=== PATIENT | female | born 2000 | race African-American/Black ===

== ENCOUNTER 2023-03-29 06:33 | Day surgery (SDC) | payer OTHER, MEDICAID, SELFPAY ==
[2023-03-26 07:44] VITALS: BMI 46.9
--- NOTE | 2023-03-29 | PATH_ITS ---
[facility] Accession Number: [id number] No. of containers..01 Tissue . 01 Material submitted: . tonsil - BILATERAL TONSILS . 01 Diagnosis: Bilateral Tonsils, Tonsillectomy: Mild, chronic-active tonsillitis and associated reactive lymphoid hyperplasia. Negative for malignancy. V 04/04/20231622 Local . 01 Electronically signed: . Nydia Cartwright MD, Pathologist NPI- [id number] . 01 Gross description: . The specimen is received in formalin labeled with the patient's name, , and bilateral tonsils, consists of two cerebriform tonsils. The first measures 5.3 x 2.7 x 1.2 cm and is inked blue, while the second measures 4.5 x 2.5 x 1.8 cm and is inked green. Sectioning reveals unremarkable architecture with yellow friable material found at the base of the crypts. A utility sales representative section of each tonsil is submitted in cassette A1. ([id number]) /V 04/04/20231622 Local . 01 Pathologist provided ICD-10: H65.93, G47.30 . 01 CPT . 508958 Specimen Comment: A courtesy copy of this report has been sent to [phone] Performed at: 01 [facility] [address] [place] [address], [place], [place] [id number] MD Kenji Negrete MD Phone: [phone]
[2023-03-29 07:12] VITALS: BP 109/67; PULSE 80; RESP 18; TEMP 36.3; O2SAT 98; BMI 48.2
--- NOTE | 2023-03-29 07:22 | PM.PREOP ---
Pre-operative Note Interval Note History & Physical reviewed/Exam performed by Physician: Yes Changes to H&P: No
--- NOTE | 2023-03-29 07:22 | PM.OP.1 ---
Operative Date/Time/Diagnoses Date of procedure: 03/29/23 Time of procedure: 08:44 Pre-op diagnosis: Severe IMTIAZ, adenotonsillar hypertrophy, Eustachian tube dysfunction, cervical lymphadenopathy Post-op diagnosis: same Procedure & Clinicians Procedure: 1. Adenotonsillectomy 2. Bilateral myringotomy with tube placement Same procedure as scheduled: Yes Indications: 22 Year old with the above diagnoses incompletely managed with medical therapy presents for the above procedure. Following discussion of the material risks benefits complications and alternatives, the patient elected to proceed. Surgeon: Lauro Begum Click Yes if Unassisted: Yes Anesthesia Type: General and Local Operative Notes Findings: Intact palate, single uvula, 4+ tonsils slightly friable, 3 to 4+ adenoids, retracted TMs AU, LEFT > RIGHT, no effusions. Shallow LEFT middle ear, tube resting on promontory. Estimated Blood Loss (mL): 5 Procedure in detail: Following identification and confirmation of consent, the patient was brought to the operating suite and placed in the supine position. General endotracheal anesthesia was administered. Under the operating microscope, beginning on the left side, I performed an anterior-inferior myringotomy followed by suctioning of any fluid present. A De Los Santos tube was placed followed by Ciprodex drops pumped into the middle ear. This process was repeated on the right side with identical findings. The table was turned right side out and A head wrap, shoulder roll, and mouth gag were placed and a red rubber catheter was inserted through the nostril and out the mouth to retract the soft palate. Suction electrocautery on a setting of 40 was used to ablate the adenoids, without injury to the eustachian tube orifices or choanae. The left tonsil was retracted medially and suction electrocautery on a setting of 30 was used to dissect the tonsil in a subcapsular plane, followed by hemostasis with same. This process was repeated on the right side with identical findings. The tonsillar fossa were superficially infiltrated bilaterally with a 1% lidocaine 1 100,000 epinephrine. Mouth gag and rubber catheter were removed and the patient was extubated in the operating room and taken to the recovery room in stable condition without known complication. Complications: none Post-operative Condition: stable Disposition: same day surgery Plan for aftercare: Push fluids 4 L daily, alternate Tylenol and Advil every 3 hours for baseline pain control, oxycodone for breakthrough pain. Soft diet 2 full weeks, no heavy lifting or straining 2 weeks. CPAP at all times during sleep, even naps. Ciprodex 4 gtts pumped into middle ear BID for 2 days, next dose tonight.
--- NOTE | 2023-03-29 07:33 | PM.HP.1 ---
History of Present Illness History of Present Illness Date Patient Seen: 03/29/23 Chief complaint: SDC Narrative: 22-year-old female presents for adenotonsillectomy, possible tube placement, last seen via telemedicine visit 02/21/2023, previously 12/18/2022 and person. Most importantly, she was diagnosed with severe IMTIAZ by sleep study 02/05, AHI 93, desaturation 66%. She is becoming accustomed to her nasal pillow CPAP, typically tolerating 5 hours nightly and has noticed some improvement in her daytime somnolence. No recent cough cold or fever. Ear still feel plugged at least intermittently, interested in possible tube placement under the same anesthetic. Patient brought CPAP with her, anesthesia review was completed 12/21, PCP clearance 12/19 reviewed. The hope is she will be able to be discharged home today otherwise overnight observation. Her mother is with her and will be caring for her postoperatively. [facility] Medical History ETD (eustachian tube dysfunction) Daytime somnolence Anxiety Cervical adenopathy Tonsillar hypertrophy IMTIAZ on CPAP Surgical History No history of previous surgery Social History household members: family Smoking Status: Never smoker alcohol intake: never Meds Home Medications and Allergies Home Medications Medication Instructions Recorded Confirmed Type escitalopram oxalate 10 mg tablet 10 mg PO DAILY 03/26/23 03/29/23 History (Lexapro) Allergies Allergy/AdvReac Type Severity Reaction Status Date / Time No Known Drug Allergies Allergy Verified 03/29/23 07:10 Review of Systems Review of Systems Narrative: Negative except as listed in the HPI Exam Vital Signs (past 8 hours): - 03/29/23 07:12 Temperature 97.4 F L Pulse Rate 80 Respiratory Rate 18 Blood Pressure 109/67 Pulse Oximetry 98 Oxygen Delivery Method Room Air Oxygen Delivery Method Room Air Narrative Exam Narrative: Well-developed well-nourished, heart regular rate and rhythm without murmur, lungs clear to auscultation bilaterally Assessment & Plan Assessment & Plan narrative: Assessment: Severe IMTIAZ, adenotonsillar hypertrophy, Eustachian tube dysfunction, possible otitis media with effusion, possible cervical lymphadenopathy Plan: Following discussion of the material risks benefits complications and alternatives, the patient elected to proceed.
--- NOTE | 2023-03-29 08:08 | SUR.OPER ---
Supine on padded OR bed, head on padded gel donut, head elevated using triangle and folded towels, arms secured on padded arm boards at <90 degrees abduction, legs uncrossed, safety belt at thigh, tape over blanket over lower legs.
[2023-03-29] MEDS: CIPROFLOXACIN/DEXAMETH OTIC SUSP 4 DROPS EAR-BOTH (08:13)
[2023-03-29] MEDS: LIDOCAINE 1% W/EPI 20 ML INJ (08:18)
[2023-03-29] MEDS: ACETAMINOPHEN IV 1,000 MG/100 ML VIAL 400 MG IV (08:38)
[2023-03-29 08:53] VITALS: BP 149/93; PULSE 95; RESP 18; TEMP 36.7; O2SAT 96
[2023-03-29 09:02] VITALS: BP 139/85; PULSE 69; RESP 20; O2SAT 100
[2023-03-29] MEDS: OXYCODONE IR 5 MG TABLET PO (09:02)
[2023-03-29 09:08] VITALS: BP 149/93; PULSE 72; RESP 15; O2SAT 100
[2023-03-29 09:13] VITALS: BP 135/86; PULSE 68; RESP 17; TEMP 36.7; O2SAT 100
== END 2023-03-29 09:39 | disposition home or self-care (01) ==
PROVIDERS: PCP Physician Assistant; Referring Provider Otolaryngology; Visit Provider Otolaryngology
PROC: (CPT 42821; principal; 2023-03-29 07:45)
PROC: (CPT 42821; 2023-03-29 07:45)
DX: H65.93 Unspecified nonsuppurative otitis media, bilateral (principal); H69.83 Other specified disorders of Eustachian tube, bilateral; R40.0 Somnolence; J35.3 Hypertrophy of tonsils with hypertrophy of adenoids; G47.30 Sleep apnea, unspecified; R59.0 Localized enlarged lymph nodes
CPT/HCPCS: 42821; 69436; J0131; J0330; J1100; J2405; J2704; J3010

== ENCOUNTER 2024-11-28 05:56 | Emergency (ER) | payer OTHER, SELFPAY ==
[2024-11-28 06:11] VITALS: BP 108/69; PULSE 88; RESP 18; O2SAT 99; BMI 51.2
[2024-11-28 06:32] LABS: Bilirubin Urine UA NEGATIVE (NEGATIVE); Color Urine UA YELLOW; Glucose Urine UA NEGATIVE (Negative); Ketones Urine UA NEGATIVE (NEGATIVE); Leukocyte Esterase Urine UA NEGATIVE (NEGATIVE); Nitrite Urine UA NEGATIVE (Negative); Occult Blood Urine UA 3+ (Negative); Protein Urine UA TRACE (Negative); Specific Gravity Urine UA 1.025 (1.000-1.035)
[2024-11-28 06:33] LABS: Pregnancy Test Urine Negative (Negative)
[2024-11-28 06:34] LABS: Appearance Urine UA CLOUDY
[2024-11-28 06:41] LABS: Add Manual Diff / Slide Review NO; Basophils Absolute Auto 100 /uL (0-100); Basophils Percent Auto 0.5 % (0-2); Eosinophils Absolute Auto 200 /uL (0-450); Eosinophils Percent Auto 2.1 % (2-4); Hematocrit 36.7 % (36-46); Hemoglobin 12.1 g/dL (12.0-16.0); Lymphocytes Absolute Auto 2000 /uL (1100-4500); Lymphocytes Percent Auto 19.1 % (25-40); Mean Corpuscular Volume 81.6 fL (80-100); Monocytes Absolute Auto 700 /uL (0-900); Monocytes Percent Auto 6.7 % (3-14); Neutrophils Absolute Auto 7400 /uL (1500-7000); Neutrophils Percent Auto 71.6 % (50-75); Platelet Count 385 X10^3/uL (150-400); Red Blood Cell Count 4.49 X10^6/uL (4.0-5.2); Red Cell Distribution Width 14.3 % (11.6-14.8); White Blood Cell Count 10.4 X10^3/uL (4.5-11.0)
[2024-11-28 06:50] LABS: Urine Volume Low Vol <10mL (spun)
[2024-11-28 06:51] LABS: Bacteria Urine None Seen; Culture Indicated Urine Cult Not Indicated; RBC Urine 30-100/HPF (0-5/HPF); Squamous Epithelial Cell Urine None Seen (0-5/HPF); WBC Urine None Seen (0-5/HPF)
[2024-11-28 06:56] LABS: Alanine Aminotransferase 23 IU/L (<35); Albumin 4.2 g/dL (3.5-5.0); Albumin Globulin Ratio 1.2 (1.0-2.8); Alkaline Phosphatase 97 U/L (38-126); Aspartate Aminotransferase 31 IU/L (14-36); BUN Creatinine Ratio 25.6 (6-22); Bilirubin Total 0.4 mg/dL (0.2-1.3); Blood Urea Nitrogen 20 mg/dL (7-17); Calcium 9.1 mg/dL (8.4-10.2); Carbon Dioxide 25 mmol/L (22-32); Chloride 106 mmol/L (98-107); Estimated Glomerular Filt Rate > 60 mL/min (>60); Globulin 3.6 g/dL (1.7-4.1); Glucose 100 mg/dL (70-99); HEMOLYSIS < 15 (0-50); Sodium 139 mmol/L (137-145); Total Protein 7.8 g/dL (6.3-8.2)
--- NOTE | 2024-11-28 06:57 | ED.GENADULT ---
HPI - General Adult General Chief complaint: Abdominal Pain Stated complaint: pelvic pain, poss. , blood clots in urine Time Seen by Provider: 11/28/24 06:06 Source: patient Mode of arrival: Ambulatory History of Present Illness HPI narrative: 24-year-old woman no significant medical history concerned with pelvic cramping severe for the last 7 hours and noticeable for at least 24 hours. She notes that she and her were trying to get , she had a positive test on November 20, a negative test on November 27 comes in today with severe cramping and heavy bleeding. She states she has been once before and had an uncomplicated spontaneous miscarriage 6-1/2 weeks. Currently no fevers or chills, ibuprofen has not been effective in controlling her current cramps. No dysuria no previous vaginal discharge, no fevers, chills, cough, chest pain, palpitation Related Data Home Medications ?Medication ?Instructions ?Recorded ?Confirmed escitalopram oxalate 10 mg tablet 10 mg PO DAILY 03/26/23 03/29/23 (Lexapro) Allergies Allergy/AdvReac Type Severity Reaction Status Date / Time No Known Drug Allergies Allergy Verified 03/29/23 07:10 Review of Systems Review of Systems Narrative: Pertinent positive and negative findings as per HPI Patient History Medical History ETD (eustachian tube dysfunction) Daytime somnolence Anxiety Cervical adenopathy Tonsillar hypertrophy IMTIAZ on CPAP Surgical History No history of previous surgery Social History household members: family alcohol intake: never Exam Initial Vital Signs Initial Vital Signs: Vital Signs Pulse Rate 88 11/28/24 06:11 Respiratory Rate 18 11/28/24 06:11 Blood Pressure 108/69 11/28/24 06:11 Pulse Oximetry 99 11/28/24 06:11 Oxygen Delivery Method Room Air 11/28/24 06:11 General: Alert appropriate in no acute distress Respiratory: Able to speak in full sentences, no obvious respiratory distress Abdomen: Obese, soft, no rebound or guarding, does not have significant pelvic tenderness externally Skin: No obvious rashes, warm and dry Neurologic: Grossly intact no obvious asymmetries or abnormalities Psych: appropriate insight and affect, cooperative Course Orders Ordered: ED Orders 11/28/24 06:06 Chlamydia Gonorrhea PCR -URINE Stat 11/28/24 06:10 Test Urine Stat Urinalysis and Microscopic Stat 11/28/24 06:32 CBC Auto Diff [Complete Blood Count AUTO DIFF] Stat CMP [Comprehensive Metabolic Panel] Stat HCG Quantitative /Beta subunit Stat Vital Signs Vital signs: Vital Signs - 8 hr 11/28/24 06:11 Pulse Rate 88 Respiratory Rate 18 Blood Pressure 108/69 Pulse Oximetry 99 Oxygen Delivery Method Room Air Medical Decision Making Lab Data 11/28/24 06:32 11/28/24 06:32 Labs: Lab Results 11/28/24 11/28/24 Range/Units 06:10 06:32 WBC 10.4 (4.5-11.0) X10^3/uL RBC 4.49 (4.0-5.2) X10^6/uL Hgb 12.1 (12.0-16.0) g/dL Hct 36.7 (36-46) % MCV 81.6 (80-100) fL MCH 27.0 (26-34) PG MCHC 33.0 (30-36) % RDW 14.3 (11.6-14.8) % Plt Count 385 (150-400) X10^3/uL Neut % (Auto) 71.6 (50-75) % Lymph % (Auto) 19.1 L (25-40) % [place] % (Auto) 6.7 (3-14) % Eos % (Auto) 2.1 (2-4) % Baso % (Auto) 0.5 (0-2) % Neut # (Auto) 7400 H (8943-1859) /uL Lymph # (Auto) 2000 (4638-2335) /uL [place] # (Auto) 700 (0-900) /uL Eos # (Auto) 200 (0-450) /uL Baso # (Auto) 100 (0-100) /uL Urine Color Yellow Urine Appearance Cloudy Urine pH 6.0 (4.5-8.0) Ur Specific [place] 1.025 (1.000-1.035) Urine Protein Trace H (Negative) Urine Glucose (UA) Negative (Negative) g/dL Urine Ketones Negative (NEGATIVE) Urine Occult Blood 3+ H (Negative) Urine Nitrate Negative (Negative) Urine Bilirubin Negative (NEGATIVE) Urine Urobilinogen 1.0 (0.2) E.U./dL Ur Leukocyte Esterase Negative (NEGATIVE) Urine RBC 30-100/hpf H (0-5/HPF) Urine WBC None seen (0-5/HPF) Ur Squamous Epith Cells None seen (0-5/HPF) Urine Bacteria None seen (None) Ur Culture Indicated? Cult not indicated Vol Urine Centrifuged Low vol <10ml (spun) A Urine Test Negative (Negative) MDM Narrative Medical decision making narrative: CC: Is vaginal bleeding and cramping risk for 24 hours Complicating co-morbidities: Positive test on the , negative test on the . Data collected from: patient Differential considered: Missed , ectopic , menometrorrhagia Exam documented above, pertinent findings include: Exam is benign Lab Test results independently reviewed as above. Pertinent findings: Chemistries are reassuring Quantitative hCG is undetectable Urine test is negative Urine has blood no white cells no bacteria CBC has normal white count no anemia Imaging studies independently reviewed: With both urine and quantitative hCG negative, further pelvic imaging is not indicated today Treatments: IV Toradol Discussion: 24-year-old woman with pelvic cramping and bleeding. Last menstrual period was October 08. A single positive home test with subsequent testing negative in testing in the emergency department showing no evidence of and undetectable hCG. Discussed findings with her. Toradol did seem to help with her cramping. Suspect that this is an asymptomatic/incidental loss, identified with highly sensitive tests only. Findings reviewed with the patient. Unclear if this technically should in terms of a complete miscarriage and need for further workup. Typically woke up begins after a 3rd miscarriage. Did show that discussion with her. If she has not other very early last would recommend OBGYN consultation. Anticipated course of symptoms and resolution reviewed with her. Suggested continued vitamins, consideration of not trying for for approximately 3 months to allow her body to completely heal. No indication for further workup or hospitalization she is safe for discharge Discharge Plan Departure Patient Disposition: Home Clinical Impression: Complete miscarriage Instructions: DI for Miscarriage Activity Restrictions/Additional Instructions: Thank you for coming in today You will are 100% not today. Your blood test for hormone is undetectable, your urine test is negative. This is always hard to know how to best interpret these very early miscarriage is with highly sensitive urine test positive for a day or 2 and then bleeding and cramping with no evidence of a continued . If you do want to continue trying for a , I would recommend continuing your vitamins. It may be worth waiting for 2-3 cycles to allow your body to completely heal and provide the most healthy setting for after that. Most recommendations are to discuss recurrent loss with an OBGYN after a 3rd miscarriage. These are very common, and typically do not effect your facility in any way Using 400 mg of ibuprofen (2 [id number] pills) and 1 Tylenol every 6 hours can be very helpful in controlling pain. If you find that you are getting worse or develop any new symptoms, please feel free to return to the emergency department for further evaluation. Prescriptions: No Action escitalopram oxalate [Lexapro] 10 mg Tablet 10 mg PO DAILY Referrals: Raquel Zhang PA-C [Primary Care Provider, Medical] Stand Alone Forms: Patient Portal/API
[2024-11-28 07:13] LABS: HCG Quantitative /Beta subunit < 2.39 mIU/mL
[2024-11-28] MEDS: KETOROLAC 30 MG/ML VIAL 15 MG IV (07:27)
[2024-11-28 07:41] VITALS: BP 106/58; PULSE 71; RESP 16; TEMP 36.7; O2SAT 99
== END 2024-11-28 07:42 | disposition home or self-care (01) ==
PROVIDERS: Emergency Provider Emergency Medicine; PCP Physician Assistant
DX: O03.9 Complete or unspecified spontaneous abortion without complication (principal)
CPT/HCPCS: 36415; 80053; 81001; 81025; 84702; 85025; 96374; 99284; J1885

== ENCOUNTER → 2025-02-23 09:14 | Outpatient (CLI) | payer OTHER, SELFPAY ==
[2025-02-23 09:53] LABS: Add Manual Diff / Slide Review NO; Hematocrit 40.3 % (36-46); Hemoglobin 13.4 g/dL (12.0-16.0); Lymphocytes Absolute Auto 2300 /uL (1100-4500); Mean Corpuscular HGB Conc 33.1 % (30-36); Mean Corpuscular Hemoglobin 26.3 PG (26-34); Mean Corpuscular Volume 79.4 fL (80-100); Platelet Count 389 X10^3/uL (150-400)
[2025-02-23 10:10] LABS: Alanine Aminotransferase 18 IU/L (<35); Albumin 4.5 g/dL (3.5-5.0); Albumin Globulin Ratio 1.3 (1.0-2.8); Alkaline Phosphatase 99 U/L (38-126); Blood Urea Nitrogen 17 mg/dL (7-17); Calcium 9.7 mg/dL (8.4-10.2); Carbon Dioxide 25 mmol/L (22-32); Chloride 105 mmol/L (98-107); Estimated Glomerular Filt Rate > 60 mL/min (>60); Globulin 3.5 g/dL (1.7-4.1); Glucose 86 mg/dL (70-99); HEMOLYSIS < 15 (0-50); Potassium 4.2 mmol/L (3.4-5.1); Sodium 140 mmol/L (137-145); Total Protein 8.0 g/dL (6.3-8.2)
[2025-02-23 10:15] LABS: Hemoglobin A1C% w Est Avg Glu 5.6 % (4.0-6.0)
[2025-02-23 10:42] LABS: TSH w/ Reflex to FT4 0.83 uIU/mL (0.47-4.68)
[2025-02-23 16:15] LABS: Follicle Stimulating Hormone 5.98 mIU/mL
== END ==
PROVIDERS: PCP Family Medicine; Referring Provider Family Medicine; Visit Provider Family Medicine
DX: N93.9 Abnormal uterine and vaginal bleeding, unspecified (principal); Z76.89 Persons encountering health services in other specified circumstances
CPT/HCPCS: 36415; 80053; 83001; 83002; 83036; 84146; 84403; 84443; 85025

== ENCOUNTER → 2025-03-02 13:51 | Outpatient (CLI) | payer OTHER, SELFPAY ==
--- NOTE | 2025-03-02 13:52 | DI.US.S_ITS ---
PROCEDURE: US PELVIC COMPLETE INDICATIONS: DUB TECHNIQUE: Real-time scanning was performed of the pelvic organs, with image documentation. Additional endovaginal scanning was necessary due to incomplete visualization of the adnexal and endometrial structures by transabdominal scanning. COMPARISON: None. FINDINGS: Uterus: Uterus is anteverted and normal in size at 6.8 x 3.3 x 3.5 cm. The myometrium is homogeneous. The endometrium measures 6.6 mm combined thickness. No endometrial mass or fluid. Ovaries: The right ovary measures 2.0 x 3.8 x 1.6 cm, with a calculated ovarian volume of 6.6 cc. The left ovary measures 2.9 x 2.3 x 1.8 cm, with a calculated ovarian volume of 6.3 cc. The ovaries have a normal sonographic appearance. Greater than 12 follicles can be seen in each ovary. No adnexal masses are seen. Other: No pathologic free abdominal or pelvic fluid. IMPRESSION: 1. Normal appearing uterus and endometrium. 2. No solid appearing ovarian lesion. No adnexal mass. Greater than 12 follicles are seen in each ovary. Findings meet the [place] definition of polycystic ovaries. In the absence of ovulatory dysfunction or clinically/biochemically diagnosed hyperandrogenism, findings are non specific and do not indicate the presence of polycystic ovarian syndrome. We strive to produce accurate, complete, and clear reports of imaging services. To assist us in improving patient care, this report was composed using standard report templates and voice recognition software. Therefore, it may contain abnormal punctuation, insertions and/or omissions. Occasional wrong-word or sound-alike substitutions may occur. Though we review the report and make efforts to correct it, we do recommend that the report be read carefully in proper context to recognize any text inaccuracies. Dictated by: Edgar Tapia M.D. on 03/02/2025 at 16:58 Approved by: Edgar Tapia M.D. on 03/02/2025 at 17:00
== END ==
PROVIDERS: PCP Family Medicine; Referring Provider Family Medicine; Visit Provider Family Medicine
DX: N93.9 Abnormal uterine and vaginal bleeding, unspecified (principal)
CPT/HCPCS: 76830; 76856

== ENCOUNTER 2025-03-26 20:19 | Emergency (ER) | payer OTHER, SELFPAY ==
[2025-03-26 20:38] VITALS: BP 121/74; PULSE 73; RESP 17; TEMP 36.6; O2SAT 99; BMI 51.5
== END 2025-03-26 20:55 | disposition left against medical advice (07) ==
PROVIDERS: PCP Family Medicine
DX: Z53.21 Procedure and treatment not carried out due to patient leaving prior to being seen by health care provider (principal)
CPT/HCPCS: 99281